=== PATIENT | male | born 1990 | race Caucasian/White ===

== ENCOUNTER → 2018-05-04 10:09 | Outpatient (CLI) | payer OTHER, SELFPAY ==
[2018-05-04 12:20] LABS: Vitamin D,25 Hydroxy 37.6 ng/mL (29.95-100.01)
[2018-05-04 12:35] LABS: Anion Gap 10 (5-15); BUN 12 mg/dL (7-18); BUN/Creat Ratio 13.5 RATIO (10-20); Calcium,Total 9.2 mg/dL (8.5-10.1); Chloride 106 mmol/L (98-107); Cholesterol 174 mg/dL (200); Creatinine, Serum 0.89 mg/dL (0.70-1.30); EST Glomerular Filtration Rate 108 mL/min (>60); Est Glom Filt Rate - Afr Amer 131 mL/min (>60); Glucose 87 mg/dL (74-106); High Density Lipoprotein 36 mg/dL; Potassium 4.2 mmol/L (3.5-5.1); Sodium Level 141 mmol/L (136-145); Triglycerides 185 mg/dL; Very Low Density Lipoprotein 37 mg/dL (5-40)
== END ==
PROVIDERS: Family Provider Family Medicine; PCP Family Medicine; Visit Provider Family Medicine
DX: Z00.00 Encounter for general adult medical examination without abnormal findings (principal)
CPT/HCPCS: 36415; 80048; 80061; 82306; 84443

== ENCOUNTER → 2019-01-17 08:30 | Outpatient (CLI) | payer OTHER, SELFPAY ==
[2019-01-17 10:15] LABS: Absolute Lymphocyte Count 2.13 X10^3/uL (0.83-4.51); Absolute Neutrophil Count 5.1 X10^3/uL (2.0-7.7); Basophil% 1.1 % (0-1); Eosinophil# 0.63 X10^3/uL; Eosinophils% 7.2 % (0-5); Hematocrit 42.1 % (40-54); Hemoglobin 14.1 g/dL (13.0-16.5); Lymphocyte # 2.13 X10^3/ul (4.0); Lymphocyte % 24.5 % (19-41); Mean Corp Hgb Conc 33.5 g/dL (32-36); Mean Corpuscular Volume 86.4 fL (80-94); Mean Platelet Vol. 9.3 fl (6.2-12.0); Monocyte# 0.69 X10^3/uL; Monocyte% 7.9 % (0-10); NRBC Flagged by Analyzer 0 % (0-5); Neutrophil # 5.13 X10^3/uL (2.7-7.7); Neutrophil % 59.1 % (47-70); Platelet Count 367 K/mm3 (150-450); RBC Distribution Width CV 11.6 % (11.6-14.6); RBC Distribution Width SD 36.6 fl (35.1-43.9); Red Blood Count 4.87 M/mm3 (4.6-6.2); White Blood Count 8.7 K/mm3 (4.4-11.0)
[2019-01-17 10:51] LABS: ALB/GLOB Ratio 1.1 RATIO (0.9-2.4); AST(SGOT) 24 U/L (15-37); Alanine Aminotransfer ALT/SGPT 40 U/L (16-61); Albumin, Serum 3.9 g/dL (3.2-5.0); Alkaline Phosphatase 100 U/L (45-117); Anion Gap 4 (5-15); BUN 15 mg/dL (7-18); BUN/Creat Ratio 15.2 RATIO (10-20); Calcium,Total 9.1 mg/dL (8.5-10.1); Chloride 108 mmol/L (98-107); Creatinine, Serum 0.99 mg/dL (0.70-1.30); EST Glomerular Filtration Rate 95 mL/min (>60); Est Glom Filt Rate - Afr Amer 116 mL/min (>60); Globulin 3.7 g/dL (2.2-4.2); Glucose 96 mg/dL (74-106); Potassium 3.9 mmol/L (3.5-5.1); Protein, Total 7.6 g/dL (6.4-8.2); Sodium Level 138 mmol/L (136-145)
== END ==
PROVIDERS: Family Provider Family Medicine; PCP Family Medicine; Referring Provider Family Medicine; Visit Provider Family Medicine
DX: R10.9 Unspecified abdominal pain (principal)
CPT/HCPCS: 36415; 80053; 85025

== ENCOUNTER → 2019-01-22 17:48 | Outpatient (CLI) | payer OTHER, SELFPAY ==
--- NOTE | 2019-01-22 17:51 | CT_ITS ---
HISTORY: PALPABLE ABDOMINAL MASS IN LUQ ADDITIONAL HISTORY: None provided. TECHNIQUE: CT images were obtained of the abdomen with 100mL Isovue-300 IV contrast. Enteric contrast was given. A radiation dose optimization technique was used for this scan. Number of images including paperwork: [id number] COMPARISON: None FINDINGS: LOWER THORAX: No consolidation or pleural effusion. Minimal basilar atelectasis. Contrast in the distal esophagus compatible with reflux. LIVER: Low-density hepatic lesions measuring 5 mm or less in size suggestive of cysts. GALLBLADDER: No radiopaque calculi. BILE DUCTS: No significant biliary dilatation. SPLEEN: Unremarkable. PANCREAS: Unremarkable. ADRENAL GLANDS: Unremarkable. KIDNEYS/URETERS: Unremarkable right kidney. Absent left kidney. BOWEL: No bowel obstruction. No significant bowel wall thickening. No localized inflammation. APPENDIX: No evidence of appendicitis. FREE FLUID: No significant free fluid. FREE AIR: None. LYMPH NODES: No pathologic appearing adenopathy. PERITONEUM, RETROPERITONEUM AND MESENTERY: Otherwise unremarkable. VASCULATURE: Unremarkable as imaged. ABDOMINAL WALL: Unremarkable. OSSEOUS AND SOFT TISSUE STRUCTURES: No acute skeletal findings. Thoracolumbar scoliosis with evidence of previous fusion. CT/Abdomen WITH IV Contrast IMPRESSION: No acute abdominal abnormality. Individualized dose optimization techniques were used for this CT. at 0102 Reported and signed by: Radha Vega MD Electronically Signed: Radha Vega MD at 1:02 EDT Tel , Service support ,
== END ==
PROVIDERS: Family Provider Family Medicine; PCP Family Medicine; Referring Provider Family Medicine; Visit Provider Family Medicine
DX: R10.9 Unspecified abdominal pain (principal)
CPT/HCPCS: 74160; Q9967

== ENCOUNTER 2021-07-06 09:47 | Outpatient (CLI) | payer OTHER, SELFPAY ==
[2021-07-06 12:35] LABS: Anion Gap 7 (5-15); BUN 13 mg/dL (7-18); BUN/Creat Ratio 12.6 RATIO (10-20); Calcium,Total 9.3 mg/dL (8.5-10.1); Chloride 105 mmol/L (98-107); Cholesterol 192 mg/dL (200); Creatinine, Serum 1.03 mg/dL (0.70-1.30); EST Glomerular Filtration Rate 90 mL/min (>60); Est Glom Filt Rate - Afr Amer 109 mL/min (>60); Glucose 96 mg/dL (74-106); High Density Lipoprotein 38 mg/dL; Sodium Level 137 mmol/L (136-145); Triglycerides 215 mg/dL; Very Low Density Lipoprotein 43 mg/dL (5-40)
== END 2021-07-06 23:59 | disposition home or self-care (01) ==
LOC: MFPLAB 09:48
PROVIDERS: PCP Family Medicine; Visit Provider Family Medicine
DX: Z00.00 Encounter for general adult medical examination without abnormal findings (principal)
CPT/HCPCS: 36415; 80048; 80061; 82306; 84403

== ENCOUNTER → 2021-09-04 | Outpatient (CLI) | payer OTHER, SELFPAY | END | disposition home or self-care (01) | LOC: MFPLAB 09:27 | PROVIDERS: PCP Family Medicine; Referring Provider Family Medicine; Visit Provider Family Medicine | DX: E29.1 Testicular hypofunction (principal) | CPT/HCPCS: 36415; 84403 ==

== ENCOUNTER → 2021-12-29 | Outpatient (CLI) | payer OTHER, SELFPAY ==
[2021-12-29 09:56] LABS: Absolute Lymphocyte Count 1.89 X10^3/uL (0.83-4.51); Absolute Neutrophil Count 7.4 X10^3/uL (2.0-7.7); Basophil# 0.13 X10^3/uL; Basophil% 1.2 % (0-1); Eosinophil# 0.52 X10^3/uL; Eosinophils% 4.8 % (0-5); Hemoglobin 15.1 g/dL (13.0-16.5); Lymphocyte # 1.89 X10^3/ul (0.83-4.51); Lymphocyte % 17.5 % (19-41); Mean Corp Hgb Conc 33.6 g/dL (32-36); Mean Corpuscular Hgb 27.8 pg (27.0-32.0); Mean Corpuscular Volume 82.9 fL (80-94); Mean Platelet Vol. 9.1 fl (6.2-12.0); Monocyte# 0.79 X10^3/uL; Monocyte% 7.3 % (0-10); NRBC Flagged by Analyzer 0 % (0-5); Neutrophil # 7.41 X10^3/uL (2.7-7.7); Neutrophil % 68.9 % (47-70); Platelet Count 408 K/mm3 (150-450); RBC Distribution Width CV 14.2 % (11.6-14.6); RBC Distribution Width SD 42.9 fl (35.1-43.9); Red Blood Count 5.43 M/mm3 (4.6-6.2); White Blood Count 10.8 K/mm3 (4.4-11.0)
[2021-12-29 10:16] LABS: Anion Gap 7 (5-15); BUN 13 mg/dL (7-18); BUN/Creat Ratio 12.5 RATIO (10-20); Calcium,Total 9.2 mg/dL (8.5-10.1); Chloride 104 mmol/L (98-107); Creatinine, Serum 1.04 mg/dL (0.70-1.30); EST Glomerular Filtration Rate 88 mL/min (>60); Est Glom Filt Rate - Afr Amer 107 mL/min (>60); Glucose 104 mg/dL (74-106); Potassium 4.2 mmol/L (3.5-5.1); Sodium Level 137 mmol/L (136-145)
[2022-01-05 14:09] LABS: Alternaria alternata <0.10 kU/L (Class 0); Aspergillus fumigatus <0.10 kU/L (Class 0); Bahia Grass <0.10 kU/L (Class 0); Bermuda Grass <0.10 kU/L (Class 0); Bluegrass, Kentucky <0.10 kU/L (Class 0); Cat Hair/Dander, Standard <0.10 kU/L (Class 0); Cladosporium herbarum <0.10 kU/L (Class 0); Cockroach, American <0.10 kU/L (Class 0); D farinae Mite 1.59 kU/L (Class III); D pteronyssinus 1.14 kU/L (Class II); Dog Epithelia <0.10 kU/L (Class 0); Elm, American White <0.10 kU/L (Class 0); Johnson Grass <0.10 kU/L (Class 0); Maple/Box Elder <0.10 kU/L (Class 0); Oak, White <0.10 kU/L (Class 0); Pigweed, Rough <0.10 kU/L (Class 0); Ragweed, Short/Common <0.10 kU/L (Class 0)
== END | disposition home or self-care (01) ==
LOC: MFPLAB 08:55
PROVIDERS: PCP Family Medicine; Referring Provider Family Medicine; Visit Provider Family Medicine
DX: T78.40XA Allergy, unspecified, initial encounter (principal); E29.1 Testicular hypofunction
CPT/HCPCS: 36415; 80048; 84403; 85025; 86003

== ENCOUNTER → 2022-05-24 | Outpatient (CLI) | payer BC, SELFPAY ==
[2022-05-24 10:02] LABS: Absolute Lymphocyte Count 1.15 X10^3/uL (0.83-4.51); Basophil# 0.04 X10^3/uL; Basophil% 0.5 % (0-1); Eosinophil# 0.11 X10^3/uL; Eosinophils% 1.4 % (0-5); Hematocrit 46.1 % (40-54); Hemoglobin 15.7 g/dL (13.0-16.5); Lymphocyte # 1.15 X10^3/ul (0.83-4.51); Lymphocyte % 14.6 % (19-41); Mean Corp Hgb Conc 34.1 g/dL (32-36); Mean Corpuscular Hgb 28.2 pg (27.0-32.0); Mean Corpuscular Volume 82.8 fL (80-94); Mean Platelet Vol. 8.9 fl (6.2-12.0); Monocyte# 0.54 X10^3/uL; Monocyte% 6.9 % (0-10); NRBC Flagged by Analyzer 0 % (0-5); Neutrophil # 5.99 X10^3/uL (2.7-7.7); Neutrophil % 76.3 % (47-70); Platelet Count 390 K/mm3 (150-450); RBC Distribution Width CV 13.2 % (11.6-14.6); Red Blood Count 5.57 M/mm3 (4.6-6.2); White Blood Count 7.9 K/mm3 (4.4-11.0)
== END | disposition home or self-care (01) ==
LOC: MFPLAB 09:26
PROVIDERS: PCP Family Medicine; Visit Provider Family Medicine
DX: E29.1 Testicular hypofunction (principal)
CPT/HCPCS: 36415; 84403; 85025

== ENCOUNTER 2022-11-22 21:32 | Emergency (ER) | payer BC, SELFPAY ==
[2022-11-22 21:33] VITALS: BP 185/94; PULSE 74; RESP 16; TEMP 36.3; O2SAT 100; BMI 40.4
--- NOTE | 2022-11-22 21:40 | RAD_ITS ---
INDICATION: PAIN EXAMINATION/TECHNIQUE: X-RAY - LEFT XR Shoulder 4 VIEWS COMPARISON: FINDINGS: SOFT TISSUES: No soft tissue swelling or gas. No radiopaque foreign body. BONES/JOINTS: No acute fracture or subluxation.. Normal alignment. Preservation of the joint space.. No sclerotic or destructive changes observed. RAD/Shoulder min 2 Views IMPRESSION: No acute bony injury. Electronically Signed: Leroy Prasad DO at 22:23 EDT ,
--- NOTE | 2022-11-22 23:10 | EDS_ITS ---
HPI History of Present Illness Chief Complaint: Upper Extremity Injury Detail of Chief Complaint: Left shoulder blade pain Informant: patient Narrative Narrative: Patient presents with pain to his left shoulder blade that started around noon today. He denies injury. He has history of diaphragmatic hernia repair years ago. The pain he does not think is pleuritic. He denies chest pain or shortness of breath. Patient did have recent travel to [place] via airplane and he just returned on November 14. No history of PE or DVT. [facility] Medical History (Updated 12/01/22 @ 00:02 by Background Mercedes) Abdominal pain Congenital abnormality Constipation Diarrhea Fatigue GERD (gastroesophageal reflux disease) Nephrotic syndrome Scoliosis (and kyphoscoliosis), idiopathic Sleep disorder URI (upper respiratory infection) Home Medications calcium carbonate 600 mg calcium (1,500 mg) tablet 600 mg PO DAILY 02/16/19 [History Last Taken Unknown] cholecalciferol (vitamin D3) 125 mcg (5,000 unit) capsule 5,000 unit PO DAILY 02/16/19 [History Last Taken Unknown] ferrous sulfate 325 mg (65 mg iron) tablet (Feosol) 325 mg PO DAILY 02/16/19 [History Last Taken Unknown] magnesium oxide 400 mg PO DAILY 02/16/19 [History Last Taken Unknown] omeprazole 40 mg capsule,delayed release 40 mg PO DAILY #90 caps 02/16/19 [H istory Last Taken Unknown] vitamin B12 500 mcg-folic acid 400 mcg tablet 1 tab PO DAILY 02/16/19 [History Last Taken Unknown] cyclobenzaprine 10 mg tablet 10 mg PO TID PRN Muscle Spasm #20 TABLETS 11/22/22 [Rx Last Taken Unknown] ibuprofen 600 mg tablet 600 mg PO 4X/DAY PRN PRN pain #40 tabs 11/23/22 [Rx Last Taken Unknown] ondansetron 4 mg disintegrating tablet 4 mg PO TID PRN nausea and vomiting #21 tabs 11/23/22 [Rx Last Taken Unknown] oxycodone-acetaminophen 5 mg-325 mg tablet (Percocet) 1 tab PO Q6H PRN pain 3 days #12 tabs 11/23/22 [Rx Last Taken Unknown] Allergy/AdvReac Type Severity Reaction Status Date / Time bee pollen Allergy Unknown Unknown Verified 11/23/22 04:57 Sulfa (Sulfonamide Allergy Unknown Unknown Verified 11/23/22 04:57 Antibiotics) Family History Father Arthritis Prostate cancer Diabetes Hypertension Mother Cancer Skin cancer Brother Arthritis Surgical History History of back surgery History of congenital diaphragmatic hernia History of esophagogastroduodenoscopy (EGD) History of spinal fusion for scoliosis Social History Smoking Status: Never smoker second hand exposure: No alcohol intake: never substance use type: does not use caffeine: Yes what type of physical activity do you participate in: other frequency: does not exercise ROS ROS ED Review of Systems ROS Unobtainable: other Constitutional Constitutional ED: Reports lethargy; Denies chills, fever(s), sweats or weight loss Eyes Eyes: Denies blurry vision, change in vision or diplopia ENT ENT ED: Denies rhinorrhea or sore throat Cardiovascular Cardiovascular: Denies chest pain, orthopnea or racing heartbeat Respiratory/Chest Respiratory/Chest: Denies cough, dyspnea, dyspnea on exertion, orthopnea or sputum Gastrointestinal Gastrointestinal: Denies abdominal pain, diarrhea, nausea or vomiting Genitourinary Genitourinary ED: Denies dysuria, hematuria or urinary frequency Musculoskeletal Musculoskeletal: Reports back pain; Denies arthralgias, myalgias or neck pain Integumentary Denies abscess, Abrasions or rash Neurologic Neurologic: Denies headache(s) or weakness Psychiatric Psychiatric: Denies anxiety, depression or suicidal thoughts Endocrine Endocrinology: Denies polydipsia, polyphagia or polyuria Hematologic/Lymphatic Hematologic/Lymphatic: Denies easy bleeding, easy bruising or lymphadenopathy Allergic/Immunologic Allergic/Immunologic ED: Denies mouth swelling, tongue swelling or urticaria EXAM Physical Exam Const Vital Signs: 11/22/22 21:33 Temperature 97.4 F L Temperature Source Temporal Pulse Rate 74 Respiratory Rate 16 Blood Pressure 185/94 H Blood Pressure Mean 124 Pulse Ox 100 Positive well nourished and well developed General Appearance ED: well developed and NAD HEENT Reports TM's clear and moist mucous membranes normocephalic and atraumatic; Negative for trauma or tenderness Tympanic Membrane ED: Yes TM's clear Eyes PERRL and EOMs intact bilaterally General Eye ED: Negative for pale conjunctiva or scleral icterus Neck no lymphadenopathy, supple and no JVD General: Negative for tenderness Chest Wall inspection of chest normal and palpation of chest normal Chest: Negative for tenderness Resp normal respiratory effort and clear to auscultation bilaterally Effort and Inspection: Negative for respiratory distress or pain with movement Auscultation: Negative for rhonchi, wheezes or diminished lung sounds Cardio regular rate, regular rhythm, S1 normal heart sound, S2 normal heart sound and no murmurs Peripheral Pulses: pulses 2+ throughout GI normal to inspection, nondistended, normoactive bowel sounds, soft to palpation, non-tender, non-distended and no masses Back/Spine no CVA tenderness and no thoracic nor lumbar tenderness Back/Spine Narrative: Tenderness palpation to the left thoracic paraspinal musculature just medial to the scapula. Pain somewhat reproducible. Pain somewhat reproducible with movement of his left arm. Extremity normal to inspection General Extremety ED: Negative for edema General Extremity: Negative for edema Neuro oriented x3, CN's II-XII intact bilaterally, no sensory deficits noted and gait normal Sensorium / Orientation: awake, alert, oriented to person, oriented to place and oriented to time Motor Exam: strength 5/5 throughout and strength abnormal Psych mental status grossly normal Skin no rashes or lesions noted and no wounds MDM MDM MDM Narrative Medical decision making narrative: Patient with left back pain without trauma. Recent travel to [place]. In the differential would be musculoskeletal pain versus PE. We will obtain a D-dimer. Nursing staff ordered x-rays of the left shoulder via protocol as the emergency department was busy and these x-rays were normal. Patient is dimer was normal. This point I suspect likely this is musculoskeletal. He will be given Flexeril. He did not want anything stronger for pain. He is instructed to use heat to the area. Patient will follow-up with his primary care physician within next 5 to 7 days. Lab Data Attestation: I reviewed the patient's lab results. Radiography Diagnostic Testing: Clinical Impression(s) from Imaging Studies Shoulder X-Ray 11/22/22 21:40 IMPRESSION: No acute bony injury. Electronically Signed: Leroy Prasad DO at 22:23 EDT Reading Location ID and State: [facility] / [place] Tel [phone], Service support , 2 view x-rays of left shoulder obtained interpreted by myself as no evidence of fracture and no evidence of pneumothorax. Radiology in agreement. Discharge Plan Triage Chief Complaint: Upper Extremity Injury ED Provider: Jennifer Cook Dx/Rx/DC Orders Clinical Impression: Back pain Instructions: ED Back Pain (Acute or Chronic) Prescriptions: New cyclobenzaprine [cyclobenzaprine] 10 mg tablet 10 mg PO TID PRN (Reason: Muscle Spasm) Qty: 20 0RF No Action omeprazole 40 mg capsule,delayed release(DR/EC) 40 mg PO DAILY Qty: 90 calcium carbonate 600 mg calcium (1,500 mg) tablet 600 mg PO DAILY vitamin X50-[id number] acid 500-400 mcg tablet 1 tab PO DAILY magnesium oxide 400 mg magnesium capsule 400 mg PO DAILY cholecalciferol (vitamin D3) 5,000 unit capsule 5,000 unit PO DAILY ferrous sulfate [Feosol] 325 mg (65 mg iron) tablet 325 mg PO DAILY oxycodone-acetaminophen [Percocet] 5-325 mg tablet 1 tab PO Q6H PRN (Reason: pain) 3 Days Qty: 12 0RF ondansetron 4 mg tablet,disintegrating 4 mg PO TID PRN (Reason: nausea and vomiting) Qty: 21 0RF ibuprofen 600 mg tablet 600 mg PO 4X/DAY PRN PRN (Reason: pain) Qty: 40 0RF Primary Care Provider: Abhishek Redd Referrals: Abhishek Redd MD [Primary Care Provider] - 5-7 Days Disposition Disposition: Home, Self Care Discharge Date/Time: 11/23/22 00:02
[2022-11-22 23:46] LABS: D-Dimer Quantitative (DVT/PE) < 0.27 FEU/ug/m (0.27-0.49)
[2022-11-23] MEDS: cycloBENZAPRine HCl 10 MG Tablet PO
[2022-11-23 00:01] VITALS: RESP 16
== END 2022-11-23 00:02 | disposition home or self-care (01) ==
PROVIDERS: Emergency Provider Emergency Medicine; PCP Family Medicine; Visit Provider Emergency Medicine
DX: M54.9 Dorsalgia, unspecified (principal)
CPT/HCPCS: 73030; 85379; 99283; A4216

== ENCOUNTER → 2022-11-22 | Outpatient (CLI) | payer BC, SELFPAY ==
[2022-11-22 12:14] LABS: Absolute Lymphocyte Count 1.79 X10^3/uL (0.83-4.51); Absolute Neutrophil Count 6.1 X10^3/uL (2.0-7.7); Basophil# 0.11 X10^3/uL; Basophil% 1.2 % (0-1); Eosinophil# 0.51 X10^3/uL; Eosinophils% 5.6 % (0-5); Hemoglobin 13.6 g/dL (13.0-16.5); Lymphocyte # 1.79 X10^3/ul (0.83-4.51); Lymphocyte % 19.5 % (19-41); Mean Corp Hgb Conc 31.6 g/dL (32-36); Mean Corpuscular Hgb 24.9 pg (27.0-32.0); Mean Corpuscular Volume 78.6 fL (80-94); Mean Platelet Vol. 9.5 fl (6.2-12.0); Monocyte# 0.61 X10^3/uL; Monocyte% 6.7 % (0-10); NRBC Flagged by Analyzer 0 % (0-5); Neutrophil # 6.12 X10^3/uL (2.7-7.7); Neutrophil % 66.8 % (47-70); Platelet Count 446 K/mm3 (150-450); RBC Distribution Width CV 15.7 % (11.6-14.6); RBC Distribution Width SD 44.2 fl (35.1-43.9); Red Blood Count 5.47 M/mm3 (4.6-6.2); White Blood Count 9.2 K/mm3 (4.4-11.0)
[2022-11-22 13:05] LABS: PSA,Total - Annual Screen 0.64 ng/mL (0.00-4.00)
== END | disposition home or self-care (01) ==
LOC: MFPLAB 09:17
PROVIDERS: PCP Family Medicine; Visit Provider Family Medicine
DX: E29.1 Testicular hypofunction (principal)
CPT/HCPCS: 36415; 84153; 84403; 85025; G0103

== ENCOUNTER 2022-11-23 04:56 | Emergency (ER) | payer BC, SELFPAY ==
[2022-11-23 04:57] VITALS: BP 165/96; PULSE 69; RESP 16; TEMP 36.3; O2SAT 95; BMI 40.0
[2022-11-23] MEDS: Ondansetron ODT 4 MG Tablet PO (05:24)
[2022-11-23] MEDS: Morphine 4 MG/ML Syringe 6 MG IM (05:24)
[2022-11-23] MEDS: Orphenadrine 60 MG/2 ML Ampul IM (05:24)
--- NOTE | 2022-11-23 05:58 | EX.ED.UPPERE ---
HPI History of Present Illness Chief Complaint: Upper Extremity Injury Informant: patient and parent Narrative Narrative: Patient is a 32-year-old male with past medical history of scoliosis as well as congenital unilateral kidney with nephrotic syndrome. He was seen earlier today after developing some left upper back pain without trauma. He takes testosterone recent had flown to and from [place] and so that time basic blood work was obtained and his D-dimer was negative. He was placed on Flexeril as it was felt this is most likely musculoskeletal in nature. He was offered stronger pain medication but did not want any at that time. Patient states since returning home he has been unable to sleep secondary to persistent pain in the left upper back and therefore comes in for evaluation. [facility] Medical History (Updated 11/23/22 @ 06:[address] Vaughn Chandler, ) Abdominal pain Congenital abnormality Constipation Diarrhea Fatigue GERD (gastroesophageal reflux disease) Nephrotic syndrome Scoliosis (and kyphoscoliosis), idiopathic Sleep disorder URI (upper respiratory infection) Home Medications calcium carbonate 600 mg calcium (1,500 mg) tablet 600 mg PO DAILY 02/16/19 [History Last Taken Unknown] cholecalciferol (vitamin D3) 125 mcg (5,000 unit) capsule 5,000 unit PO DAILY 02/16/19 [History Last Taken Unknown] ferrous sulfate 325 mg (65 mg iron) tablet (Feosol) 325 mg PO DAILY 02/16/19 [History Last Taken Unknown] magnesium oxide 400 mg PO DAILY 02/16/19 [History Last Taken Unknown] omeprazole 40 mg capsule,delayed release 40 mg PO DAILY #90 caps 02/16/19 [History Last Taken Unknown] vitamin B12 500 mcg-folic acid 400 mcg tablet 1 tab PO DAILY 02/16/19 [History Last Taken Unknown] cyclobenzaprine 10 mg tablet 10 mg PO TID PRN Muscle Spasm #20 TABLETS 11/22/22 [Rx Last Taken Unknown] ibuprofen 600 mg tablet 600 mg PO 4X/DAY PRN PRN pain #40 tabs 11/23/22 [Rx Last Taken Unknown] ondansetron 4 mg disintegrating tablet 4 mg PO TID PRN nausea and vomiting #21 tabs 11/23/22 [Rx Last Taken Unknown] oxycodone-acetaminophen 5 mg-325 mg tablet (Percocet) 1 tab PO Q6H PRN pain 3 days #12 tabs 08/15/23 [Rx Last Taken Unknown] Allergy/AdvReac Type Severity Reaction Status Date / Time bee pollen Allergy Unknown Unknown Verified 11/23/22 04:57 Sulfa (Sulfonamide Allergy Unknown Unknown Verified 11/23/22 04:57 Antibiotics) Family History Father Arthritis Prostate cancer Diabetes Hypertension Mother Cancer Skin cancer Brother Arthritis Surgical History History of back surgery History of congenital diaphragmatic hernia History of esophagogastroduodenoscopy (EGD) History of spinal fusion for scoliosis Social History Smoking Status: Never smoker second hand exposure: No alcohol intake: never substance use type: does not use caffeine: Yes what type of physical activity do you participate in: other frequency: does not exercise ROS ROS ED Constitutional Constitutional ED: Denies chills or fever(s) Eyes Eyes: Denies change in vision ENT ENT ED: Denies sore throat Cardiovascular Cardiovascular: Denies chest pain or palpitations Respiratory/Chest Respiratory/Chest: Denies cough or dyspnea Gastrointestinal Gastrointestinal: Denies abdominal pain, diarrhea, nausea or vomiting Genitourinary Genitourinary ED: Denies dysuria Musculoskeletal Musculoskeletal: Reports back pain Integumentary Denies rash Neurologic Neurologic: Denies headache(s) or paresthesias Hematologic/Lymphatic Hematologic/Lymphatic: Denies easy bleeding or easy bruising EXAM Physical Exam Const Vital Signs: 11/23/22 04:57 Temperature 97.4 F L Temperature Source Temporal Pulse Rate 69 Respiratory Rate 16 Blood Pressure 165/96 H Blood Pressure Mean 119 Pulse Ox 95 Positive well nourished and well developed General Appearance ED: well developed HEENT HEENT Narrative: Normocephalic atraumatic Eyes PERRL and EOMs intact bilaterally Neck supple Resp normal respiratory effort and clear to auscultation bilaterally Cardio regular rate and regular rhythm Cardio Narrative: Radial and carotid pulses are equal and symmetric Back/Spine Back/Spine Narrative: No bony deformity or step-off of the thoracic or lumbar spine. No midline pain with palpation. There is left parathoracic tenderness and spasm noted around the left inferior scapular border. Pain worsens with external rotation and abduction. No overlying soft tissue changes to suggest trauma or infection Extremity normal to inspection Extremity Narrative: No asymmetric edema to suggest upper extremity DVT and negative Homans' sign bilaterally in the lower extremities Neuro oriented x3 and CN's II-XII intact bilaterally Sensorium / Orientation: alert Psych mental status grossly normal Skin no rashes or lesions noted MDM MDM MDM Narrative Medical decision making narrative: Patient presented to the ER mildly hypertensive otherwise with stable vitals. He was seen roughly 5 to 6 hours ago and at that time had a D-dimer obtained because patient had a risk factor of travel and history of testosterone use. D-dimer was negative. He also had x-rays of his shoulder obtained which revealed no acute bony abnormality. Differential diagnosis also includes muscle spasm and strain but lung pathology such as pneumonia or pneumothorax. However the patient is not coughing he does not have increased pain with inspiration and on exam breath sounds are clear throughout going against infection or pneumothorax as a cause. We discussed obtaining a CTA despite his normal D-dimer earlier today but as this is a very good rule out test and his symptoms seem more musculoskeletal in nature patient does not want the CT obtained at this time. He was given IM morphine and Norflex and had resolution of his pain. Therefore at this time with patient already having a negative D-dimer and the fact that his pain has resolved with pain medication we will simply start him on oral opioids for home and he can follow-up with his family doctor for further evaluation History & Record Review Discussion w/independent historian: Patient and Family Discharge Plan Triage Chief Complaint: Upper Extremity Injury ED Provider: Vaughn Chandler Dx/Rx/DC Orders Clinical Impression: Acute thoracic myofascial strain, Muscle spasm of back, Congenital abnormality, Scoliosis (and kyphoscoliosis), idiopathic Instructions: ED Back Spasm, No Trauma, ED Back Sprain/Strain Prescriptions: New oxycodone-acetaminophen [Percocet] 5-325 mg tablet 1 tab PO Q6H PRN (Reason: pain) 3 Days Qty: 12 0RF ondansetron 4 mg tablet,disintegrating 4 mg PO TID PRN (Reason: nausea and vomiting) Qty: 21 0RF ibuprofen 600 mg tablet 600 mg PO 4X/DAY PRN PRN (Reason: pain) Qty: 40 0RF No Action omeprazole 40 mg capsule,delayed release(DR/EC) 40 mg PO DAILY Qty: 90 calcium carbonate 600 mg calcium (1,500 mg) tablet 600 mg PO DAILY vitamin E42-qkdrq acid 500-400 mcg tablet 1 tab PO DAILY magnesium oxide 400 mg magnesium capsule 400 mg PO DAILY cholecalciferol (vitamin D3) 5,000 unit capsule 5,000 unit PO DAILY ferrous sulfate [Feosol] 325 mg (65 mg iron) tablet 325 mg PO DAILY cyclobenzaprine [cyclobenzaprine] 10 mg tablet 10 mg PO TID PRN (Reason: Muscle Spasm) Qty: 20 0RF Primary Care Provider: Abhishek Redd Referrals: Abhishek Redd MD [Primary Care Provider] - Activity Restrictions/Additional Instructions: Based on your negative D-dimer earlier today I have low concern that your pain is from a pulmonary embolus/blood clot or dissection. As your pain is worse with motion and palpation this is most likely musculoskeletal in nature. Continue the Flexeril that was prescribed earlier today and add the medication that was prescribed at this visit to help control pain. You may also use [id number] treatments such as IcyHot or lidocaine patches. If you have any further concerns please return for repeat evaluation Disposition Disposition: Home, Self Care Discharge Date/Time: 11/23/22 06:07
== END 2022-11-23 06:07 | disposition home or self-care (01) ==
PROVIDERS: Emergency Provider Emergency Medicine; PCP Family Medicine; Visit Provider Emergency Medicine
DX: S29.019A Strain of muscle and tendon of unspecified wall of thorax, initial encounter (principal); M62.830 Muscle spasm of back; M41.84 Other forms of scoliosis, thoracic region; X58.XXXA Exposure to other specified factors, initial encounter
CPT/HCPCS: 96372; 99283

== ENCOUNTER → 2023-06-08 | Outpatient (CLI) | payer BC, SELFPAY ==
--- OUTSIDE RECORDS SUMMARY | 2023-06-08 08:56 | XMS RPT_ITS | CCD ---
Author Name Unknown Address [address] [place] [address] Organization [facility] Care Team Providers Care Wetlands Conservation Laborer Name Role Phone MIN WOO (PA-C) Unavailable Unavai lable TESTRAKE, RALIEGH Unavailable Unavailable TESTRAKE, RALEIGH Unavailable Unavailable WINSTON, JAMIE T Unavailable Unavailable GOUCHER, RANDA G Unavailable Unavailable TESTRAKE, RALEIGH Unavailable Unavailable TESTRAKE, RALEIGH Unavailable Unavailable LIZA MCCORMACK (PA) Unavailable Unavailable MIN WOO (PA-C) Unavailable Unavai lable SHANNEN CRAMER (BICYCLE REPAIRER) Unavailable Unavailable SHANNEN CRAMER (BICYCLE REPAIRER) Unavailable Unavailable WILLIAM FARZAD (PA) Unavailable Unavailable WINSTON, JAMIE T Unavailable Unavailable WINSTON, JAMIE T Unavailable Unavailable WILLIAM, FARZAD (PA) Unavailable Unavailable WILLIAM, FARZAD (PA) Unavailable Unavailable JAMSHID OLSON Unavailable Unavailable JAMSHID OLSON Unavailable Unavailable Allergies Allergy Classification Reported Allergen(s) Allergy Type Date of Onset Reaction(s) Facility (1 source) Hornet venom; Translations: [HORNET VENOM] Propensity to adverse reactions to drug (disorder) 08-27-19 12 [facility] Repository (1 source) sulfamethoxazole / trimethoprim; Translations: [SULFAMETHOXAZOLE-TR IMETHOPRIM] Drug Allergy 01-23-20 05 [facility] Repository (1 source) WASPS; Translations: [WASPS] Propensity to adverse reactions (disorder) 11-18-19 16 [facility] Repository Problems Active Problems Problem Classification Problem Date Documented Da te Episodic/Chronic Disorders of lipid metabolism (1 source) Pure hyperglyceridemi a; Translations: [Pure hyperglyceridemi a] Onset: 02-01-2017 Chronic Unclassified (1 source) Unknown / UNK(Unknown) Onset: 11-25-2016 Past or Other Problems Problem Classification Problem Date Documented Da te Episodic/Chronic Abdominal pain (1 source) Epigastric pain; Translations: [Epigastric pain] Onset: 03-22-2017 Episodic Other connective tissue disease (2 sources) Pain in right foot; Translations: [Pain in left foot] Onset: 11-16-2016 Episodic Results Test Name Value Interpretation Reference Range Facil ity Encounters Encounter Date Encounter Type Care Provider Facility Start: 06-14-2017 End: 06-15-2017 Ambulatory RISA OLSON [facility] Start: 03-28-2017 End: 04-05-2017 Ambulatory FARZAD (PA) [facility] Start: 03-22-2017 End: 03-22-2017 Ambulatory JAMIE German WINSTON [facility] Start: 03-11-2017 End: 03-15-2017 Ambulatory FARZAD (PA) WILLIAM [facility] Start: 02-01-2017 End: 02-02-2017 Ambulatory SHANNEN (BICYCLE REPAIRER) SHOAIB [facility] Start: 01-02-2017 End: 01-03-2017 Ambulatory MIN [facility] Start: 12-28-2016 End: 12-29-2016 Ambulatory MIN (PA-C) [facility] Start: 12-24-2016 End: 12-27-2016 Ambulatory LIZA (PA) [facility] Start: 12-07-2016 End: 12-09-2016 Ambulatory RALEIGH PAT [facility] Start: 11-25-2016 End: 11-29-2016 Ambulatory JAMIE MONTERO [facility] Start: 11-16-2016 End: 11-17-2016 Ambulatory RALEIGH ANDREWTYE [facility] Start: 11-05-2016 End: 11-08-2016 Ambulatory MIN (PA-C) [facility] Summary Purpose Family History No Family History Records Found Advance Directives No Advanced Directives Records Found Additional Source Comments (unrecognized sect ion and content) No Status Records Found INFORMATION SOURCE (unrecogn ized section and content) FOR RECORDS PERTAINING TO PATIENTS WHO ARE OR HAVE BEEN ENROLLED IN A CHEMICAL DEPENDENCY/SUBSTANCEABUSE PROGRAM, SOME INFORMATION MAY BE OMITTED. This clinical summary was aggregated from multiple sources. Caution should be exercised in using it in the provision of clinical care. This summary normalizes information from multiple sources, and as a consequence, information in this document may materially change the coding, format and clinical context of patient data. In addition, data may be omitted in some cases. CLINICAL DECISIONS SHOULD BE BASED ON THE PRIMARY CLINICAL RECORDS. [employer] [facility]. provides no warranty or guarantee of the accuracy or completeness of information in this document.
[2023-06-08 10:24] LABS: Absolute Lymphocyte Count 1.56 X10^3/uL (0.83-4.51); Absolute Neutrophil Count 5.7 X10^3/uL (2.0-7.7); Basophil# 0.12 X10^3/uL; Basophil% 1.4 % (0-1); Eosinophil# 0.66 X10^3/uL; Eosinophils% 7.6 % (0-5); Hematocrit 36.5 % (40-54); Hemoglobin 10.9 g/dL (13.0-16.5); Lymphocyte # 1.56 X10^3/ul (0.83-4.51); Lymphocyte % 18.1 % (19-41); Mean Corp Hgb Conc 29.9 g/dL (32-36); Mean Corpuscular Hgb 21.5 pg (27.0-32.0); Mean Corpuscular Volume 71.9 fL (80-94); Mean Platelet Vol. 9.1 fl (6.2-12.0); Monocyte# 0.58 X10^3/uL; Monocyte% 6.7 % (0-10); NRBC Flagged by Analyzer 0 % (0-5); Neutrophil # 5.68 X10^3/uL (2.7-7.7); Neutrophil % 65.9 % (47-70); Platelet Count 471 K/mm3 (150-450); RBC Distribution Width CV 16.3 % (11.6-14.6); RBC Distribution Width SD 41.8 fl (35.1-43.9); Red Blood Count 5.08 M/mm3 (4.6-6.2); White Blood Count 8.6 K/mm3 (4.4-11.0)
[2023-06-15 12:10] LABS: Testosterone, Free 3.02 ng/dL (5.00-21.00); Testosterone, Total 72 ng/dL (264-916)
== END | disposition home or self-care (01) ==
LOC: MFPLAB 08:35
PROVIDERS: PCP Family Medicine; Visit Provider Family Medicine
DX: E29.1 Testicular hypofunction (principal)
CPT/HCPCS: 36415; 84402; 84403; 85025

== ENCOUNTER → 2023-06-15 | Outpatient (CLI) | payer BC, SELFPAY ==
--- OUTSIDE RECORDS SUMMARY | 2023-06-15 11:19 | XMS RPT_ITS | CCD ---
Author Name Unknown Address [address] [place] [address] Organization [facility] Care Team Providers Care Film Process Operator Name Role Phone MIN WOO (PA-C) Unavailable Unavai lable TESTRAKE, RALEIGH Unavailable Unavailable TESTRAKE, RALEIGH Unavailable Unavailable WINSTON, JAMIE T Unavailable Unavailable GOUCHER, RANDA G Unavailable Unavailable TESTRAKE, RALEIGH Unavailable Unavailable TESTRAKE, RALEIGH Unavailable Unavailable LIZA MCCORMACK (PA) Unavailable Unavailable MIN WOO (PA-C) Unavailable Unavai lable SHANNEN CRAMER (SAS DEVELOPER ANALYST) Unavailable Unavailable SHANNEN CRAMER (SAS DEVELOPER ANALYST) Unavailable Unavailable WILLIAM FARZAD (PA) Unavailable Unavailable WINSTON, JAMIE T Unavailable Unavailable WINSTON, JAMIE T Unavailable Unavailable WILLIAM, FARZAD (PA) Unavailable Unavailable WILLIAM, FARZAD (PA) Unavailable Unavailable JAMSHID OLSON Unavailable Unavailable JAMSHID OLSON Unavailable Unavailable Allergies Allergy Classification Reported Allergen(s) Allergy Type Date of Onset Reaction(s) Facility (1 source) Hornet venom; Translations: [HORNET VENOM] Propensity to adverse reactions to drug (disorder) 08-27-19 12 [facility] Repository (1 source) sulfamethoxazole / trimethoprim; Translations: [SULFAMETHOXAZOLE-TR IMETHOPRIM] Drug Allergy 01-23-20 05 [facility] Repository (1 source) WASPS; Translations: [WASPS] Propensity to adverse reactions (disorder) 11-18-19 16 [facility] Repository Problems Active Problems Problem Classification Problem [...] Start: 06-14-2017 End: 06-15-2017 Ambulatory RISA OLSON [facility] Start: 03-28-2017 End: 04-05-2017 Ambulatory FARZAD (PA) [facility] Start: 03-22-2017 End: 03-22-2017 Ambulatory JAMIE German WINSTON [facility] Start: 03-11-2017 End: 03-15-2017 Ambulatory FARZAD (PA) WILLIAM [facility] Start: 02-01-2017 End: 02-02-2017 Ambulatory SHANNEN (SAS DEVELOPER ANALYST) SHOAIB [facility] Start: 01-02-2017 End: 01-03-2017 Ambulatory MIN [facility] Start: 12-28-2016 End: 12-29-2016 Ambulatory MIN (PA-C) [facility] Start: 12-24-2016 End: 12-27-2016 Ambulatory LIZA (PA) [facility] Start: 12-07-2016 End: 12-09-2016 Ambulatory RALEIGH PAT [facility] Start: 11-25-2016 End: 11-29-2016 Ambulatory JAMIE MONTERO [facility] Start: 11-16-2016 End: 11-17-2016 Ambulatory RALEIGH ANDREWTYE [facility] Start: 11-05-2016 End: 11-08-2016 Ambulatory MIN (PA-C) [facility] Summary Purpose Family History No Family [...] BE BASED ON THE PRIMARY CLINICAL RECORDS. [employer] [facility]. provides no warranty or guarantee of the accuracy or completeness of information in this document.
[2023-06-15 13:15] LABS: Ferritin 11 ng/mL (26-388); Iron Binding Capacity,Total 436 ug/dL (250-450)
== END | disposition home or self-care (01) ==
LOC: MFPLAB 10:34
PROVIDERS: PCP Family Medicine; Visit Provider Family Medicine
DX: E61.1 Iron deficiency (principal)
CPT/HCPCS: 36415; 82728; 83550

== ENCOUNTER → 2023-07-11 | Outpatient (CLI) | payer BC, SELFPAY ==
[2023-07-11 12:24] LABS: Absolute Lymphocyte Count 1.38 X10^3/uL (0.83-4.51); Absolute Neutrophil Count 6.3 X10^3/uL (2.0-7.7); Basophil# 0.11 X10^3/uL; Basophil% 1.2 % (0-1); Eosinophil# 0.56 X10^3/uL; Eosinophils% 6.3 % (0-5); Hematocrit 39.5 % (40-54); Hemoglobin 12.1 g/dL (13.0-16.5); Lymphocyte # 1.38 X10^3/ul (0.83-4.51); Lymphocyte % 15.5 % (19-41); Mean Corp Hgb Conc 30.6 g/dL (32-36); Mean Corpuscular Volume 75.2 fL (80-94); Monocyte# 0.51 X10^3/uL; Monocyte% 5.7 % (0-10); NRBC Flagged by Analyzer 0 % (0-5); Neutrophil # 6.29 X10^3/uL (2.7-7.7); Platelet Count 466 K/mm3 (150-450); RBC Distribution Width SD 51.8 fl (35.1-43.9); Red Blood Count 5.25 M/mm3 (4.6-6.2); White Blood Count 8.9 K/mm3 (4.4-11.0)
== END | disposition home or self-care (01) ==
LOC: MFPLAB 10:15
PROVIDERS: PCP Family Medicine; Visit Provider Family Medicine
DX: E29.1 Testicular hypofunction (principal); E61.1 Iron deficiency
CPT/HCPCS: 36415; 84403; 85025

== ENCOUNTER → 2023-09-12 | Outpatient (CLI) | payer BC, SELFPAY ==
[2023-09-12 10:37] LABS: Absolute Lymphocyte Count 1.66 X10^3/uL (0.83-4.51); Absolute Neutrophil Count 5.6 X10^3/uL (2.0-7.7); Basophil# 0.12 X10^3/uL; Basophil% 1.4 % (0-1); Eosinophil# 0.59 X10^3/uL; Eosinophils% 6.9 % (0-5); Hemoglobin 14.6 g/dL (13.0-16.5); Lymphocyte # 1.66 X10^3/ul (0.83-4.51); Lymphocyte % 19.3 % (19-41); Mean Corp Hgb Conc 31.7 g/dL (32-36); Mean Corpuscular Hgb 26.3 pg (27.0-32.0); Mean Corpuscular Volume 82.9 fL (80-94); Monocyte# 0.63 X10^3/uL; Monocyte% 7.3 % (0-10); NRBC Flagged by Analyzer 0 % (0-5); Neutrophil # 5.57 X10^3/uL (2.7-7.7); Neutrophil % 64.9 % (47-70); Platelet Count 375 K/mm3 (150-450); RBC Distribution Width CV 17.2 % (11.6-14.6); RBC Distribution Width SD 52.2 fl (35.1-43.9); Red Blood Count 5.55 M/mm3 (4.6-6.2); White Blood Count 8.6 K/mm3 (4.4-11.0)
[2023-09-12 11:09] LABS: Thyroid Stim Hormone (TSH) 2.57 uIU/mL (0.358-3.74)
== END | disposition home or self-care (01) ==
LOC: MFPLAB 08:39
PROVIDERS: PCP Family Medicine; Visit Provider Family Medicine
DX: E66.9 Obesity, unspecified (principal); D64.9 Anemia, unspecified
CPT/HCPCS: 36415; 84443; 85025

== ENCOUNTER → 2024-01-26 | Outpatient (CLI) | payer BC, SELFPAY ==
[2024-01-26 12:25] LABS: Absolute Lymphocyte Count 1.82 X10^3/uL (0.83-4.51); Absolute Neutrophil Count 6.6 X10^3/uL (2.0-7.7); Basophil# 0.12 X10^3/uL; Basophil% 1.2 % (0-1); Eosinophil# 0.61 X10^3/uL; Eosinophils% 6.2 % (0-5); Hematocrit 48.4 % (40-54); Hemoglobin 17.1 g/dL (13.0-16.5); Lymphocyte # 1.82 X10^3/ul (0.83-4.51); Lymphocyte % 18.5 % (19-41); Mean Corp Hgb Conc 35.3 g/dL (32-36); Mean Corpuscular Hgb 30.2 pg (27.0-32.0); Mean Corpuscular Volume 85.4 fL (80-94); Mean Platelet Vol. 9.5 fl (6.2-12.0); Monocyte% 6.1 % (0-10); NRBC Flagged by Analyzer 0 % (0-5); Neutrophil # 6.64 X10^3/uL (2.7-7.7); Neutrophil % 67.6 % (47-70); Platelet Count 384 K/mm3 (150-450); RBC Distribution Width CV 12.8 % (11.6-14.6); RBC Distribution Width SD 39.2 fl (35.1-43.9); Red Blood Count 5.67 M/mm3 (4.6-6.2); White Blood Count 9.8 K/mm3 (4.4-11.0)
[2024-01-26 13:04] LABS: Ferritin 84 ng/mL (26-388); Iron 72 ug/dL (65-175); Iron Binding Capacity,Total 347 ug/dL (250-450); PERCENT IRON SATURATION 20.7 % (15.0-55.0)
[2024-02-01 11:09] LABS: Testosterone, % Free 4.24 % (1.50-4.20); Testosterone, Free 14.37 ng/dL (5.00-21.00); Testosterone, Total 339 ng/dL (264-916)
== END | disposition home or self-care (01) ==
LOC: MFPLAB 10:01
PROVIDERS: PCP Family Medicine; Visit Provider Family Medicine
DX: D64.9 Anemia, unspecified (principal); E66.9 Obesity, unspecified; E29.1 Testicular hypofunction
CPT/HCPCS: 36415; 82728; 83540; 83550; 84402; 84403; 84443; 85025

== ENCOUNTER → 2024-02-08 | Outpatient (CLI) | payer BC, SELFPAY ==
--- NOTE | 2024-02-08 14:22 | RAD_ITS ---
STUDY: X-RAY CHEST REASON FOR EXAM: Male, 33 years old. Pneumonia TECHNIQUE: PA and lateral views of the chest. COMPARISON: None. FINDINGS: Right upper lobe infiltrate. There is no demonstrated pleural abnormality. Normal size heart. Normal mediastinum and estephania. Normal visualized pulmonary arteries. Normal visualized aortic arch and descending thoracic aorta. Kyphosis at the thoracolumbar junction with fusion of the upper lumbar vertebrae. Normal visualized ribs, clavicles, and shoulders. There is no demonstrated abnormality of the visualized soft tissue structures of the upper abdomen. RAD/Chest PA and Lateral IMPRESSION: Right upper lobe infiltrate. Electronically Signed: Miki Claros MD at 14:59 EDT ,
[2024-02-08 17:32] LABS: Absolute Lymphocyte Count 1.25 X10^3/uL (0.83-4.51); Absolute Neutrophil Count 7.6 X10^3/uL (2.0-7.7); Basophil# 0.08 X10^3/uL; Basophil% 0.8 % (0-1); Eosinophil# 0.43 X10^3/uL; Eosinophils% 4.2 % (0-5); Hematocrit 43.4 % (40-54); Hemoglobin 14.5 g/dL (13.0-16.5); Lymphocyte # 1.25 X10^3/ul (0.83-4.51); Lymphocyte % 12.3 % (19-41); Mean Corp Hgb Conc 33.4 g/dL (32-36); Mean Corpuscular Hgb 28.9 pg (27.0-32.0); Mean Corpuscular Volume 86.5 fL (80-94); Monocyte# 0.78 X10^3/uL; Monocyte% 7.7 % (0-10); NRBC Flagged by Analyzer 0 % (0-5); Neutrophil # 7.57 X10^3/uL (2.7-7.7); Neutrophil % 74.7 % (47-70); Platelet Count 401 K/mm3 (150-450); RBC Distribution Width CV 13.2 % (11.6-14.6); RBC Distribution Width SD 41.1 fl (35.1-43.9); Red Blood Count 5.02 M/mm3 (4.6-6.2); White Blood Count 10.1 K/mm3 (4.4-11.0)
== END | disposition home or self-care (01) ==
LOC: MTLAB 14:20
PROVIDERS: PCP Family Medicine; Referring Provider Family Medicine; Visit Provider Family Medicine
DX: J18.9 Pneumonia, unspecified organism (principal)
CPT/HCPCS: 36415; 71046; 85025

== ENCOUNTER → 2024-04-23 | Outpatient (CLI) | payer BC, SELFPAY ==
[2024-04-23 12:19] LABS: Absolute Lymphocyte Count 1.66 X10^3/uL (0.83-4.51); Absolute Neutrophil Count 6.6 X10^3/uL (2.0-7.7); Basophil# 0.14 X10^3/uL; Basophil% 1.5 % (0-1); Eosinophil# 0.51 X10^3/uL; Eosinophils% 5.4 % (0-5); Hematocrit 50.2 % (40-54); Hemoglobin 16.7 g/dL (13.0-16.5); Lymphocyte # 1.66 X10^3/ul (0.83-4.51); Lymphocyte % 17.6 % (19-41); Mean Corp Hgb Conc 33.3 g/dL (32-36); Mean Corpuscular Hgb 28.9 pg (27.0-32.0); Mean Corpuscular Volume 86.9 fL (80-94); Mean Platelet Vol. 9.2 fl (6.2-12.0); Monocyte# 0.47 X10^3/uL; NRBC Flagged by Analyzer 0 % (0-5); Neutrophil # 6.61 X10^3/uL (2.7-7.7); Neutrophil % 70.1 % (47-70); Platelet Count 395 K/mm3 (150-450); RBC Distribution Width CV 12.9 % (11.6-14.6); RBC Distribution Width SD 40.4 fl (35.1-43.9); Red Blood Count 5.78 M/mm3 (4.6-6.2); White Blood Count 9.4 K/mm3 (4.4-11.0)
== END | disposition home or self-care (01) ==
PROVIDERS: PCP Family Medicine; Referring Provider Family Medicine; Visit Provider Family Medicine
DX: R53.83 Other fatigue (principal)
CPT/HCPCS: 36415; 84403; 84443; 85025

== ENCOUNTER → 2024-07-23 | Outpatient (CLI) | payer BC, SELFPAY ==
[2024-07-23 11:27] LABS: Absolute Lymphocyte Count 1.42 X10^3/uL (0.83-4.51); Absolute Neutrophil Count 6.8 X10^3/uL (2.0-7.7); Basophil# 0.11 X10^3/uL; Basophil% 1.2 % (0-1); Eosinophil# 0.59 X10^3/uL; Eosinophils% 6.2 % (0-5); Hematocrit 47.4 % (40-54); Hemoglobin 16.9 g/dL (13.0-16.5); Lymphocyte # 1.42 X10^3/ul (0.83-4.51); Lymphocyte % 14.9 % (19-41); Mean Corp Hgb Conc 35.7 g/dL (32-36); Mean Corpuscular Hgb 30.7 pg (27.0-32.0); Mean Platelet Vol. 9.5 fl (6.2-12.0); Monocyte# 0.56 X10^3/uL; Monocyte% 5.9 % (0-10); NRBC Flagged by Analyzer 0 % (0-5); Neutrophil # 6.81 X10^3/uL (2.7-7.7); Neutrophil % 71.5 % (47-70); Platelet Count 380 K/mm3 (150-450); RBC Distribution Width CV 12.6 % (11.6-14.6); RBC Distribution Width SD 39.4 fl (35.1-43.9); Red Blood Count 5.51 M/mm3 (4.6-6.2); White Blood Count 9.5 K/mm3 (4.4-11.0)
== END | disposition home or self-care (01) ==
LOC: MFPLAB 08:58
PROVIDERS: PCP Family Medicine; Referring Provider Family Medicine; Visit Provider Family Medicine
DX: E29.1 Testicular hypofunction (principal); R53.83 Other fatigue
CPT/HCPCS: 36415; 84402; 84403; 84443; 85025

== ENCOUNTER → 2024-11-19 | Outpatient (CLI) | payer BC, SELFPAY ==
[2024-11-19 10:12] LABS: Hematocrit 47.3 % (40-54); Hemoglobin 16.4 g/dL (13.0-16.5); Mean Corp Hgb Conc 34.7 g/dL (32-36); Mean Corpuscular Volume 86.2 fL (80-94); Mean Platelet Vol. 9.2 fl (6.2-12.0); Platelet Count 380 K/mm3 (150-450); RBC Distribution Width CV 12.4 % (11.6-14.6); RBC Distribution Width SD 39.2 fl (35.1-43.9); Red Blood Count 5.49 M/mm3 (4.6-6.2); White Blood Count 8.8 K/mm3 (4.4-11.0)
[2024-11-19 11:06] LABS: Anion Gap 12 (5-15); BUN 14 mg/dL (4-19); BUN/Creat Ratio 12.4 RATIO (10-20); Calcium,Total 9.4 mg/dL (7.6-11.0); Carbon Dioxide 23.7 mmol/L (21.0-32.0); Chloride 102 mmol/L (98-108); Cholesterol 189 mg/dL (<=200); Glucose 99 mg/dL (70-99); Low Density Lipoprotein Calc. 92 mg/dL; Potassium 3.9 mmol/L (3.3-5.1); Triglycerides 327 mg/dL; Very Low Density Lipoprotein 65 mg/dL (5-40); cholesterol:hdl ratio screen 6.00
== END | disposition home or self-care (01) ==
LOC: MFPLAB 09:11
PROVIDERS: PCP Family Medicine; Visit Provider Family Medicine
DX: Z00.00 Encounter for general adult medical examination without abnormal findings (principal); E29.1 Testicular hypofunction
CPT/HCPCS: 36415; 80048; 80061; 84403; 85027

== ENCOUNTER 2025-01-08 05:22 | Emergency (ER) | payer BC, SELFPAY ==
[2025-01-08 05:25] VITALS: BP 196/100; PULSE 70; RESP 18; TEMP 36.6; O2SAT 95; BMI 41.4
[2025-01-08 05:55] VITALS: BP 169/100
[2025-01-08] MEDS: Lidocaine 5% Patch 1 PATCH TOPICAL (05:58)
[2025-01-08 05:59] VITALS: BP 169/100; PULSE 66; RESP 18; TEMP 36.6; O2SAT 99
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
== END 2025-01-08 06:11 | disposition home or self-care (01) ==
LOC: ED 06:06
PROVIDERS: Emergency Provider Emergency Medicine; PCP Family Medicine; Visit Provider Emergency Medicine
DX: M54.6 Pain in thoracic spine (principal); K21.9 Gastro-esophageal reflux disease without esophagitis; Z79.899 Other long term (current) drug therapy; Z98.1 Arthrodesis status
CPT/HCPCS: 99283